=== PATIENT | female | born 1945 | race Caucasian/White ===

== ENCOUNTER → 2016-09-16 | Outpatient (CLI) | payer MEDICARE, BC ==
[~2016-09-16] MED LIST: AMOXICILLIN 8751 TAB; ASPI1POW PO; ASPIRIN 32325 MG/TAB PO; ASPIRIN 81M81 MG/TA2; BACTRIM DS 8001 TAB PO; CEPHALEXIN500 M1 PO; COZAAR 50MG50 MG/TAB PO; FISH OIL 1000MG1 CAP PO; FISH OIL1000 MG PO; FORT1000TA PO; IRON324 M1 PO; LIPITOR 10MG10 MG PO; LOPRESSOR 225 MG/TAB PO; MASON NATURAL500 MG PO; MVI; NATURE'S BLEND500 M1 PO; NITROQUICK0.4 MG SL; PLAVIX 75MG TAB75 MG PO; SYNTHROID0.125 MG/T PO; TRIAMCINOLONE A15 G1 TP
== END ==
LOC: MC.RAD 10:00
DX: Z12.31 Encounter for screening mammogram for malignant neoplasm of breast (principal)

== ENCOUNTER 2017-07-26 16:06 | Emergency (ER) | payer MEDICARE, BC ==
[~2017-07-26] VITALS: Ht 165.1 cm; Wt 64.5 kg
[2017-07-26 16:13] VITALS: TEMP 98
[2017-07-26 17:13] LABS: BASO # 0.1 (0.0-0.2); BASO % 0.6 % (0.0-2.0); EOS # 0.1 (0.0-0.7); EOS % 1.7 % (0-4.0); GRAN # 5.1 (1.4-6.5); GRAN % 63.2 % (42.2-75.2); HEMOGLOBIN 12.6 g/dl (12.5-16.0); LYMPH # 2.1 (1.2-3.4); LYMPH % 25.8 % (20.0-51.0); MEAN CELL VOLUME 90 fl (80.0-100.0); MEAN CORPUSCULAR HEMOGLOBIN 28 pg (27.0-31.0); MEAN CORPUSCULAR HGB CONC 32 g/dl (33.0-37.0); MEAN PLATELET VOLUME 10.6 fl (7.4-10.4); MONO # 0.7 (0.1-0.6); MONO % 8.5 % (1.7-9.3); PLATELET COUNT 269 K/mm3 (130-400); RED BLOOD COUNT 4.46 M/mm3 (4.10-5.30); REDCELL DISTRIBUTION WIDTH-CV 13.6 % (11.5-14.5)
[2017-07-26 17:18] LABS: PROTHROMBIN TIME 11.2 SECONDS (9.7-12.8)
[2017-07-26 17:20] LABS: PARTIAL THROMBOPLASTIN TIME 28.7 SECONDS (26.0-37.0)
[2017-07-26 17:24] LABS: ALANINE AMINOTRANSFERASE 42 U/L (9-52); ALBUMIN 4.2 gm/dL (3.5-5.0); ALKALINE PHOSPHATASE 83 U/L (50-136); ANION GAP 13 mmol/L (7-16); AST,SGOT 50 U/L (15-37); BILIRUBIN,TOTAL 0.3 mg/dL (0.0-1.0); BLOOD UREA NITROGEN 20 mg/dL (7-17); CALCIUM 9.2 mg/dL (8.4-10.2); CARBON DIOXIDE 26 mmol/L (22-30); CHLORIDE 105 mmol/L (98-107); CREATININE, serum 0.77 mg/dL (0.52-1.25); GLUCOSE 135 mg/dL (74-106); LIPASE 140 U/L (23-300); MAGNESIUM 1.7 mg/dL (1.6-2.3); SODIUM 144 mmol/L (137-145)
[2017-07-26 17:38] LABS: TROPONIN-I < 0.012 ng/mL (0.000-0.034)
[2017-07-26 19:12] LABS: COLLECTION METHOD CLEAN CATCH
[2017-07-26 19:20] LABS: MUCOUS Present /lpf; PH 5 (5-8); URINE APPEARANCE Hazy; URINE BACTERIA Rare /hpf; URINE BILIRUBIN Negative (NEGATIVE); URINE BLOOD 1+ (NEGATIVE); URINE COLOR Yellow; URINE GLUCOSE Negative (NEGATIVE); URINE KETONE Negative (NEGATIVE); URINE LEUKOCYTE ESTERASE 3+ (NEGATIVE); URINE NITRATE Negative (NEGATIVE); URINE PROTEIN(semi-quant) Negative (NEGATIVE); URINE UROBILINOGEN Negative (NEGATIVE)
[2017-07-26] MEDS ORDERED: MACROBID 1100 MG/CAP PO (20:00)
[2017-07-26] MEDS ORDERED: PROTONIX 40MG T40 MG PO (20:02)
[2017-07-26] MEDS ORDERED: CARAFATE 1GM1 G PO (20:02)
[2017-07-26 20:23] VITALS: BP 154/75
[2017-07-26] MEDS ORDERED: ASPIRIN 32325 MG/TAB PO (20:24)
[2017-07-26] MEDS ORDERED: GLUCOPHAGE1000 MG PO (20:24)
[2017-07-26 20:57] VITALS: PULSE 80
== END 2017-07-26 20:58 | disposition home or self-care (01) ==
LOC: COL.ER 16:06
PROVIDERS: Emergency Medicine
DX: N39.0 Urinary tract infection, site not specified (principal); R07.89 Other chest pain; E11.9 Type 2 diabetes mellitus without complications; I10 Essential (primary) hypertension; E78.5 Hyperlipidemia, unspecified; E03.9 Hypothyroidism, unspecified; Z95.5 Presence of coronary angioplasty implant and graft; Z79.84 Long term (current) use of oral hypoglycemic drugs; Z79.82 Long term (current) use of aspirin
CPT/HCPCS: C9113

== ENCOUNTER → 2017-10-10 | Outpatient (CLI) | payer MEDICARE, BC ==
[~2017-10-10] MED LIST changes: +CARAFATE 1GM1 G PO; +GLUCOPHAGE1000 MG PO; +MACROBID 1100 MG/CAP PO; +PROTONIX 40MG T40 MG PO
== END ==
LOC: MC.RAD 10:19
DX: Z12.31 Encounter for screening mammogram for malignant neoplasm of breast (principal)

== ENCOUNTER → 2017-11-21 | Outpatient (CLI) | payer MEDICARE, BC | LOC: SUN.DIA 14:11 | DX: E11.9 Type 2 diabetes mellitus without complications (principal); I11.9 Hypertensive heart disease without heart failure; E78.5 Hyperlipidemia, unspecified; E66.9 Obesity, unspecified; Z68.39 Body mass index [BMI] 39.0-39.9, adult; Z71.3 Dietary counseling and surveillance; Z87.891 Personal history of nicotine dependence | CPT/HCPCS: G0108 ==

== ENCOUNTER → 2017-12-21 | Outpatient (CLI) | payer MEDICARE, BC | LOC: SUN.DIA 11-01 15:40 | DX: E11.9 Type 2 diabetes mellitus without complications (principal); E78.5 Hyperlipidemia, unspecified; I10 Essential (primary) hypertension; E66.9 Obesity, unspecified; F17.210 Nicotine dependence, cigarettes, uncomplicated ==

== ENCOUNTER → 2018-06-29 | Outpatient (CLI) | payer MEDICARE, BC | LOC: COL.PUL 12:32 | DX: R06.02 Shortness of breath (principal); R07.89 Other chest pain; Z87.891 Personal history of nicotine dependence | CPT/HCPCS: J7674 ==

== ENCOUNTER → 2018-10-27 | Outpatient (CLI) | payer MEDICARE, BC | LOC: MC.RAD 10:43 | DX: Z12.31 Encounter for screening mammogram for malignant neoplasm of breast (principal) ==

== ENCOUNTER 2019-01-07 10:10 | Emergency (ER) | payer MEDICARE, BC ==
[~2019-01-07] VITALS: Ht 165.1 cm; Wt 104.1 kg
[2019-01-07 10:25] VITALS: TEMP 98.3
[2019-01-07] MEDS ORDERED: BREO IH (10:53)
[2019-01-07] MEDS ORDERED: MULTI VITAMINS1 TAB PO (10:54)
[2019-01-07] MEDS ORDERED: NASONEX SPRAY17 GM NS (10:55)
[2019-01-07] MEDS ORDERED: VITAMIN D 1001000 IU PO (10:55)
[2019-01-07] MEDS ORDERED: CRANBERRY500 M3 PO (10:56)
[2019-01-07] MEDS ORDERED: [UNRECOGNIZED DRUG - OTHER] OU (10:56)
[2019-01-07 11:11] LABS: BASO # 0.1 (0.0-0.2); BASO % 0.7 % (0.0-2.0); EOS # 0.1 (0.0-0.7); EOS % 1.4 % (0-4.0); GRAN # 4.6 (1.4-6.5); GRAN % 66.2 % (42.2-75.2); HEMATOCRIT 41.5 % (37.0-47.0); HEMOGLOBIN 13.4 g/dl (12.5-16.0); LYMPH # 1.6 (1.2-3.4); LYMPH % 22.8 % (20.0-51.0); MEAN CELL VOLUME 93 fl (80.0-100.0); MEAN CORPUSCULAR HEMOGLOBIN 30 pg (27.0-31.0); MEAN CORPUSCULAR HGB CONC 32 g/dl (33.0-37.0); MEAN PLATELET VOLUME 10.5 fl (7.4-10.4); MONO # 0.6 (0.1-0.6); MONO % 8.3 % (1.7-9.3); PLATELET COUNT 269 K/mm3 (130-400); RED BLOOD COUNT 4.46 M/mm3 (4.10-5.30)
[2019-01-07 11:23] LABS: ALBUMIN 4.3 gm/dL (3.5-5.0); BILIRUBIN,TOTAL 0.3 mg/dL (0.0-1.0); CALCIUM 9.3 mg/dL (8.4-10.2); CREATININE, serum 0.67 (0.52-1.25); POTASSIUM 4.1 mmol/L (3.4-5.0); TOTAL PROTEIN 7.1 gm/dL (6.4-8.2)
[2019-01-07 12:19] VITALS: BP 131/83; PULSE 70
== END 2019-01-07 12:20 | disposition home or self-care (01) ==
LOC: COL.ER 10:10
PROVIDERS: Family Medicine
DX: M79.662 Pain in left lower leg (principal); E11.9 Type 2 diabetes mellitus without complications; Z79.84 Long term (current) use of oral hypoglycemic drugs; Z79.51 Long term (current) use of inhaled steroids; Z79.82 Long term (current) use of aspirin

== ENCOUNTER → 2019-11-28 | Outpatient (CLI) | payer MEDICARE, BC ==
[~2019-11-28] MED LIST changes: +BREO IH; +CRANBERRY500 M3 PO; +MULTI VITAMINS1 TAB PO; +NASONEX SPRAY17 GM NS; +VITAMIN D 1001000 IU PO; +[UNRECOGNIZED DRUG - OTHER] OU
== END ==
LOC: MC.RAD 10:13
DX: Z12.31 Encounter for screening mammogram for malignant neoplasm of breast (principal)

== ENCOUNTER 2020-08-25 20:54 | Observation (INO) | payer MEDICARE, BC ==
[~2020-08-25] VITALS: Ht 165.1 cm; Wt 97.3 kg
[2020-08-25 21:21] LABS: BASO # 0.1 (0.0-0.2); BASO % 0.7 % (0.0-2.0); EOS # 0.1 (0.0-0.7); EOS % 1.5 % (0-4.0); GRAN # 4.8 (1.4-6.5); GRAN % 54.9 % (42.2-75.2); HEMATOCRIT 45.6 % (37.0-47.0); HEMOGLOBIN 14.8 g/dl (12.5-16.0); LYMPH % 34.6 % (20.0-51.0); MEAN CELL VOLUME 96 fl (80.0-100.0); MEAN CORPUSCULAR HEMOGLOBIN 31 pg (27.0-31.0); MEAN CORPUSCULAR HGB CONC 33 g/dl (33.0-37.0); MEAN PLATELET VOLUME 10.4 fl (7.4-10.4); MONO # 0.7 (0.1-0.6); MONO % 8.1 % (1.7-9.3); PLATELET COUNT 241 K/mm3 (130-400); RED BLOOD COUNT 4.76 M/mm3 (4.10-5.30); REDCELL DISTRIBUTION WIDTH-CV 12.2 % (11.5-14.5)
[2020-08-25 21:27] LABS: PROTHROMBIN TIME 10.8 SECONDS (9.7-12.8)
[2020-08-25 21:29] LABS: PARTIAL THROMBOPLASTIN TIME 29.7 SECONDS (26.0-37.0)
[2020-08-25 21:30] LABS: ALANINE AMINOTRANSFERASE 34 U/L (4-34); ALBUMIN 4.4 gm/dL (3.5-5.0); ALKALINE PHOSPHATASE 79 U/L (50-136); ANION GAP 7 mmol/L (7-16); AST,SGOT 49 U/L (15-37); BILIRUBIN,TOTAL 0.2 mg/dL (0.0-1.0); BLOOD UREA NITROGEN 21 mg/dL (7-17); CALCIUM 9.7 mg/dL (8.4-10.2); CARBON DIOXIDE 29 mmol/L (22-30); CHLORIDE 104 mmol/L (98-107); CREATININE, serum 0.72 (0.52-1.25); GLUCOSE 138 mg/dL (74-106); SODIUM 140 mmol/L (137-145); TOTAL PROTEIN 7.6 gm/dL (6.4-8.2)
[2020-08-25 21:43] LABS: TROPONIN-I < 0.012 ng/mL (0.000-0.035)
[2020-08-26] VITALS (7 sets, daily range): BP systolic 136–164; BP diastolic 62–69; PULSE 61–72; TEMP 97.4–98.5
--- NOTE | 2020-08-26 01:35 | NUR ---
0030 - PATIENT TO FLOOR FROM ED - STATES SHE IS FEELING "FINE: A THIS TIME - HOWEVER THE FACT THAT SHE KEEPS EXPERIENCING A "LISP" WITH HER SPEECH THAT HAS NEVER BEEN THERE BEFORE HAS HER CONCERNED. SHE STATED IT IS CURRNTLY (ACTIVELY) OCCURING, THIS RN CANNOT MAKE OUT ANY LISP IN SPEECH. PATIENT ADVISED THAT SHE IS NPO; ORIENTED TO ROOM AND CALL LIGHTS, ETC. ADVISED TO CALL FOR ASSISTANCE WHEN UP TO BR FOR FIRST TIME - PATIENT IS INDEPENDANT IN ALL ADL'S PRIOR TO ADMIT. PATIENT HAS NOT LISTED ANY VISITORS AND WILL INFO STAFF IF SHE WISHES TO. N/C OF PAIN, WEAKNESS. N/V OR DIZZINSS.
--- NOTE | 2020-08-26 05:11 | NUR ---
PATIENT SLEPT WELL AFTER SETTELING INTO ROOM. WOKE TO URINATE - PATIENT OBSERVED WITH AMBULATION AND IS STEADY, APPROPRIATE ON FEET. SHE IS AWARE OF HER LIMITATIONS AND WHEN SHE DOESN'T "FEEL RIGHT". SHE AGREES TO CALL IF HELP NEEDED AND REMAINS STANDBY ASSIST
[2020-08-26 07:12] LABS: BASO # 0.1 (0.0-0.2); BASO % 0.8 % (0.0-2.0); EOS # 0.1 (0.0-0.7); EOS % 1.4 % (0-4.0); GRAN # 3.7 (1.4-6.5); GRAN % 57.8 % (42.2-75.2); HEMATOCRIT 41.6 % (37.0-47.0); HEMOGLOBIN 13.5 g/dl (12.5-16.0); LYMPH % 31.9 % (20.0-51.0); MEAN CELL VOLUME 97 fl (80.0-100.0); MEAN CORPUSCULAR HEMOGLOBIN 32 pg (27.0-31.0); MEAN CORPUSCULAR HGB CONC 33 g/dl (33.0-37.0); MEAN PLATELET VOLUME 11.1 fl (7.4-10.4); MONO # 0.5 (0.1-0.6); MONO % 7.9 % (1.7-9.3); PLATELET COUNT 198 K/mm3 (130-400); RED BLOOD COUNT 4.27 M/mm3 (4.10-5.30); REDCELL DISTRIBUTION WIDTH-CV 12.4 % (11.5-14.5)
[2020-08-26 07:20] LABS: CALCIUM 8.9 mg/dL (8.4-10.2); CREATININE, serum 0.63 (0.52-1.25); POTASSIUM 4.3 mmol/L (3.4-5.0)
--- NOTE | 2020-08-26 10:47 | NUR ---
Sales And Training Specialist attended clinical rounds with the team. PT/OT/ST ordered. After rounds, SW met with the patient to complete intake. The patient lives alone in [place]. The patient denies DME use and is independent. The patient's PCP is Dr. Aspen Gallo and patient receives medications from [facility]. The patient reports her next appointment is scheduled for the end of November. The patient has advanced directives in the EMR and designate her children. The patient plans to return home at discharge. The patient will drive herself home. She drove herself to the hospital. *Discharge disposition* Home
--- NOTE | 2020-08-26 13:32 | NUR ---
Initial visit; Patient thanked High School Learning Support Teacher for looking in on her, visiting and wishing her well.
--- NOTE | 2020-08-26 18:02 | NUR ---
Patient resting in bed at this time. Patient is alert and oriented, answers questions appropriately. Patient has had no observed speech or other deficits today. Patient has had no complaints of pain, continues to deny needs, call light within reach.
[2020-08-27 00:08] VITALS: BP 147/67; PULSE 63; TEMP 98.2
[2020-08-27 03:52] VITALS: BP 158/62; PULSE 63; TEMP 97.7
--- NOTE | 2020-08-27 06:17 | NUR ---
PATIENT SLEPT WELL MOST OF SHIFT. VOICES SOME CONCERNS THAT HER B/P IS RUNNING A LITTLE HIGHER THAN NORMAL - STATES PHYSICIAN HAD WANTED TO INCREASE HER COZAR MEDICATION TO 50MG - IT IS NOTED THAT THIS THE DOSE DUE AT 9AM. NO OTHER CONCERNS AT THIS ITME - NO NEUROLOGICAL DEFECITS NOTED THIS SHIFT.
--- NOTE | 2020-08-27 07:00 | NUR ---
Report received from FORREST Leon. pT in bed resting, doing well, denies needs, will continue to monitor.
[2020-08-27 07:39] VITALS: BP 134/69; PULSE 65; TEMP 98
[2020-08-27 07:53] LABS: CHOLESTEROL RISK RATIO 2.4
[2020-08-27] MEDS ORDERED: PLAVIX 75MG TAB75 MG PO (09:12)
--- NOTE | 2020-08-27 09:37 | NUR ---
Polish Compounder attended clinical rounds with the team. PT/OT recommending home. The patient is to tentatively discharge home today, 08/27 with no services. The patient is independent in the room. There are no concerns returning home.
--- NOTE | 2020-08-27 09:46 | NUR ---
Assessmetn charted. Pt doing well, denies any s/sx of neurological defecits today. Anticiapting dishcarge, discussed EEG outpatient most likely. INT to RA/C. Denies pain. Will continue to monitor.
[2020-08-27 11:39] VITALS: BP 137/61; PULSE 64; TEMP 98.3
--- NOTE | 2020-08-27 12:00 | NUR ---
Discharge teaching completed at this time. INT dc'd, tip intact. Tele removed. Ok to drive self home per Dr. Ferguson, hospitalist. Discharge pakcet reviewed, pt does not want to wait for [facility] office to call back with appointmetn date and time. Reviewed new scripts, appointments, and asnwered all questions. Pt left with all belongings, escorted out with medical staff. Criteria met.
== END 2020-08-27 11:57 | disposition home or self-care (01) ==
LOC: COL.ER 20:54 → MEDICAL 23:08 → COL.ER 23:08 → MEDICAL 23:10
PROVIDERS: Emergency Medicine; Student in an Organized Health Care Education/Training Program; ADMIT Internal Medicine
DX: G45.9 Transient cerebral ischemic attack, unspecified (principal); I35.0 Nonrheumatic aortic (valve) stenosis; I10 Essential (primary) hypertension; E03.9 Hypothyroidism, unspecified; E78.5 Hyperlipidemia, unspecified; J45.909 Unspecified asthma, uncomplicated; E11.9 Type 2 diabetes mellitus without complications; Z79.84 Long term (current) use of oral hypoglycemic drugs; Z95.818 Presence of other cardiac implants and grafts; Z79.82 Long term (current) use of aspirin; Z79.899 Other long term (current) drug therapy; Z79.890 Hormone replacement therapy; Z87.891 Personal history of nicotine dependence
CPT/HCPCS: OP; 99223-AI; A9585; G0378; J1650; Q9967

== ENCOUNTER 2020-09-05 18:54 | Inpatient (IN) | payer MEDICARE, BC ==
[~2020-09-05] VITALS: Ht 162.6 cm; Wt 94.1 kg
[2020-09-05 20:07] LABS: BASO # 0.1 (0.0-0.2); BASO % 0.6 % (0.0-2.0); EOS # 0.1 (0.0-0.7); EOS % 0.9 % (0-4.0); GRAN # 5.1 (1.4-6.5); GRAN % 65.6 % (42.2-75.2); HEMATOCRIT 42.3 % (37.0-47.0); LYMPH # 1.9 (1.2-3.4); MEAN CELL VOLUME 94 fl (80.0-100.0); MEAN CORPUSCULAR HEMOGLOBIN 31 pg (27.0-31.0); MEAN CORPUSCULAR HGB CONC 33 g/dl (33.0-37.0); MEAN PLATELET VOLUME 10.4 fl (7.4-10.4); MONO # 0.6 (0.1-0.6); MONO % 7.6 % (1.7-9.3); PLATELET COUNT 255 K/mm3 (130-400)
[2020-09-05 20:19] LABS: ALANINE AMINOTRANSFERASE 31 U/L (4-34); ALKALINE PHOSPHATASE 89 U/L (50-136); ANION GAP 8 mmol/L (7-16); AST,SGOT 46 U/L (15-37); BILIRUBIN,TOTAL 0.4 mg/dL (0.0-1.0); BLOOD UREA NITROGEN 19 mg/dL (7-17); CALCIUM 9.1 mg/dL (8.4-10.2); CARBON DIOXIDE 27 mmol/L (22-30); CHLORIDE 104 mmol/L (98-107); CREATININE, serum 0.69 (0.52-1.25); GLUCOSE 117 mg/dL (74-106); POTASSIUM 3.8 mmol/L (3.4-5.0); SODIUM 138 mmol/L (137-145)
[2020-09-05 20:24] LABS: INR 1.1 (0.8-3.0); PROTHROMBIN TIME 12.1 SECONDS (9.7-12.8)
[2020-09-05 20:37] LABS: TROPONIN-I < 0.012 ng/mL (0.000-0.035)
[2020-09-05 21:20] LABS: COLLECTION METHOD CLEAN CATCH
[2020-09-05 21:50] VITALS: BP 153/68; PULSE 67; TEMP 98
[2020-09-05 21:51] LABS: PH 5 (5-8); URINE APPEARANCE Cloudy; URINE BACTERIA Rare /hpf; URINE BILIRUBIN Negative (NEGATIVE); URINE BLOOD 1+ (NEGATIVE); URINE COLOR Yellow; URINE GLUCOSE Negative (NEGATIVE); URINE KETONE Negative (NEGATIVE); URINE LEUKOCYTE ESTERASE 3+ (NEGATIVE); URINE NITRATE Positive (NEGATIVE); URINE PROTEIN(semi-quant) Negative (NEGATIVE); URINE UROBILINOGEN Negative (NEGATIVE); URINE WBC >50 /hpf
--- NOTE | 2020-09-06 04:23 | NUR ---
PATIENT ARRIVED TO ROOM 310 FROM THE ED ON A CART. PATIENT ABLE TO AMBULATE INDEPENDENTLY TO THE BED. PATIENT IS A&O X'S 4, DENIES PAIN OR NAUSEA, AND SPEECH IS CLEAR. PATIENT WAS ORIENTED TO HER ROOM AT THE TIME OF ADMISSION. BED IN LOWEST POSITION, CALL LIGHT WITHIN REACH, AND SEIZURE PRECAUTIONS IN PLACE. NO REQUESTS OR CONCERNS VERBALIZED BY PATIENT AT THIS TIME.
[2020-09-06 04:33] VITALS: BP 110/51; PULSE 62; TEMP 97.7
[2020-09-06 06:35] LABS: BASO % 0.7 % (0.0-2.0); EOS # 0.1 (0.0-0.7); EOS % 1.6 % (0-4.0); GRAN # 3.4 (1.4-6.5); GRAN % 60.6 % (42.2-75.2); HEMATOCRIT 40.4 % (37.0-47.0); HEMOGLOBIN 13.3 g/dl (12.5-16.0); LYMPH # 1.5 (1.2-3.4); LYMPH % 27.7 % (20.0-51.0); MEAN CELL VOLUME 95 fl (80.0-100.0); MEAN CORPUSCULAR HEMOGLOBIN 31 pg (27.0-31.0); MEAN CORPUSCULAR HGB CONC 33 g/dl (33.0-37.0); MEAN PLATELET VOLUME 10.8 fl (7.4-10.4); MONO # 0.5 (0.1-0.6); PLATELET COUNT 230 K/mm3 (130-400); RED BLOOD COUNT 4.27 M/mm3 (4.10-5.30); REDCELL DISTRIBUTION WIDTH-CV 12.1 % (11.5-14.5)
[2020-09-06 06:46] LABS: CALCIUM 8.7 mg/dL (8.4-10.2); CREATININE, serum 0.62 (0.52-1.25); POTASSIUM 3.8 mmol/L (3.4-5.0)
[2020-09-06 08:47] VITALS: BP 126/65; PULSE 66; TEMP 98.1
--- NOTE | 2020-09-06 09:03 | NUR ---
Pt awake and alert upon entry, Pt states she feels like she has an impending seizure oncoming, was able to take her medications without difficulty. Shift assessments complete. Left Pt call light in reach, bed in lowest position.
--- NOTE | 2020-09-06 11:16 | NUR ---
Plan is to return home independently. SW met with patient about DC plan. Patient reports that she has a friend that will transport her home. Patient reports that her DTR Jessie is her MPOA . Patient reports that her PCP is Dr. Jessica Thomas and specialist Dr. Chaves. Patient [facility] the [facility] [employer] and obtains RX without difficulty. Patient indicated that she will continue work with speech therapy. Patient indicated that she does not need any DME or use any. Patient indicated that she has not concerns at this time for her care. Will continue to follow for supports.
[2020-09-06 11:56] VITALS: BP 117/56; PULSE 61; TEMP 97.9
--- NOTE | 2020-09-06 12:40 | NUR ---
stopped by but nothing needed at this time.
[2020-09-06 16:53] VITALS: BP 133/68; PULSE 66; TEMP 97.6
[2020-09-06 20:00] VITALS: BP 127/62; PULSE 65; TEMP 97.5
[2020-09-07] VITALS (7 sets, daily range): BP systolic 113–141; BP diastolic 58–71; PULSE 60–72; TEMP 97.4–98.2
--- NOTE | 2020-09-07 05:07 | NUR ---
NO NEW CONCERNS NOTED OR REPORTED BY PATIENT THROUGHOUT THE NIGHT. PATIENT AMBULATED IN SCHMIDT SEVERAL TIMES THROUGHOUT THE SHIFT.
[2020-09-07 06:36] LABS: BASO % 0.5 % (0.0-2.0); EOS # 0.1 (0.0-0.7); EOS % 1.3 % (0-4.0); GRAN # 3.8 (1.4-6.5); GRAN % 61.5 % (42.2-75.2); HEMATOCRIT 42.8 % (37.0-47.0); LYMPH # 1.8 (1.2-3.4); LYMPH % 28.6 % (20.0-51.0); MEAN CELL VOLUME 94 fl (80.0-100.0); MEAN CORPUSCULAR HEMOGLOBIN 31 pg (27.0-31.0); MEAN CORPUSCULAR HGB CONC 33 g/dl (33.0-37.0); MEAN PLATELET VOLUME 10.8 fl (7.4-10.4); MONO # 0.5 (0.1-0.6); MONO % 7.9 % (1.7-9.3); PLATELET COUNT 233 K/mm3 (130-400); RED BLOOD COUNT 4.54 M/mm3 (4.10-5.30); REDCELL DISTRIBUTION WIDTH-CV 12.2 % (11.5-14.5)
[2020-09-07 06:49] LABS: CALCIUM 9.1 mg/dL (8.4-10.2); CREATININE, serum 0.62 (0.52-1.25)
[2020-09-07 07:06] LABS: POTASSIUM 3.7 mmol/L (3.4-5.0)
--- NOTE | 2020-09-07 09:14 | NUR ---
Pt awake and alert upon entry this morning, no C/O pain currently. Shift assessments complete, left Pt call light in reach, bed in lowest position.
--- NOTE | 2020-09-07 14:26 | NUR ---
Pt stated that when she closed her eyes she saw "flashes if light" accross her vision.
--- NOTE | 2020-09-07 18:24 | NUR ---
Pt resting in the room, VS have remained stable. No other signs of seizure noted since the earlier note documented.
--- NOTE | 2020-09-07 23:01 | NUR ---
Patient sitting up in bed and watching TV upon enter the room. Shift assessment completed. Patient A/O x4. Patient denies any pain or discomfort. Denies SOB/dyspnea, N/V, headache, or dizziness. Denies any seizure activities. All scheduled meds given per JUL. Swallowing pills without difficulty. Call light within reach. Patient denies any needs. Fall precaution and seizure precaution maintained.
--- NOTE | 2020-09-08 01:55 | NUR ---
Patient called nurse and reports having difficulty breathing, speaking, and swollowing at 00:45 am. Patient reports that she feels like her throat is closing and she can't breath. Patient was sitting up in bed, breathing was labored, and patient was very anxious. VS- SPO2 99% on RA, BP 138/68, HR 65, Temp 98.1 at 00:45 am. Called hospitalist COLTEN Lovett and reported symptoms. COLTEN Lovett came to the room and assessed patient. Oxymask provided for comfort. New order received to give Solu-Medrol, Benadryl, and Pepcid. Solu-Medrol, Benadry, and Pepcid IV given per order. Patient reports feeling much better around 01:30 am. Breathing is even and unlabored at this time. Patient currently on oxygen 3L via oxymask. Call light within reach. Will continue to monitor.
[2020-09-08 03:07] VITALS: BP 138/67; PULSE 64; TEMP 97.7
--- NOTE | 2020-09-08 05:59 | NUR ---
Patient fell asleep around 0200 am this morning, and slept until 0600 am. Patient states feeling better this morning. No acute distress noted at this time. Call light within reach. Will give report to day shift nurse.
--- NOTE | 2020-09-08 06:13 | NUR ---
Patient refused MRI this morning. Per patient, she really wants to transfer to [facility] today, and would like to get MRI at [facility].
--- NOTE | 2020-09-08 07:02 | NUR ---
Patient awake and talking on the telephone at this time. Patient denies any pain, discomfort, or further needs at this time. Will continue to monitor. Call light within reach. Seizure precautions in place.
[2020-09-08 08:37] VITALS: BP 146/67; PULSE 83; TEMP 97.9
--- NOTE | 2020-09-08 11:57 | NUR ---
Patient resting in bed at this time. Antibiotic and fluids started as ordered. Patient denies any pain, discomfort, or futher needs at this time. Patient is wanting to be transferred to . [facility]. Will continue to monitor. Call light within reach. Seizure precautions in place.
[2020-09-08 12:00] VITALS: BP 153/57; PULSE 70; TEMP 97.7
--- NOTE | 2020-09-08 13:47 | NUR ---
Cotton Picker attended clinical rounds with the team and patient is requesting transfer to [facility]. PT/OT worked with patient and are recommending home upon discharge.
[2020-09-08 15:45] VITALS: BP 143/59; PULSE 66; TEMP 98.4
--- NOTE | 2020-09-08 18:26 | NUR ---
Patient knitting in bed at this time. IV fluids running as ordered. Patient is scheduled for MRI in the am. Patient continues to have dysphagia, no other stroke symptoms noted. Seizure precautions in place, no seizure activity noted. Will continue to monitor. Call light within reach.
[2020-09-08 21:16] VITALS: BP 132/48; PULSE 65; TEMP 97.7
--- NOTE | 2020-09-08 22:41 | NUR ---
Patient sitting up in bed and talking on the phone upon enter the room. Patient finished eating dinner. Tolerated PO food. No c/o trouble swallowing. Denies SOB/dyspnea, pain or discomfort. VS stable. All scheduled meds given per JUL. Call light within reach. Patient denies any needs at this time.
[2020-09-09] VITALS (7 sets, daily range): BP systolic 119–153; BP diastolic 52–63; PULSE 57–65; TEMP 97.5–98.2
--- NOTE | 2020-09-09 06:04 | NUR ---
Patient rested well throughout the night. No seizure activity noted. No episode of throat tightening/ closing noted. Call light within reach. Will give report to day shift nurse.
[2020-09-09 08:03] LABS: BASO % 0.6 % (0.0-2.0); EOS # 0.1 (0.0-0.7); EOS % 0.8 % (0-4.0); GRAN # 4.4 (1.4-6.5); HEMATOCRIT 41.4 % (37.0-47.0); HEMOGLOBIN 13.3 g/dl (12.5-16.0); LYMPH # 2.1 (1.2-3.4); LYMPH % 29.1 % (20.0-51.0); MEAN CELL VOLUME 94 fl (80.0-100.0); MEAN CORPUSCULAR HEMOGLOBIN 30 pg (27.0-31.0); MEAN CORPUSCULAR HGB CONC 32 g/dl (33.0-37.0); MEAN PLATELET VOLUME 10.7 fl (7.4-10.4); MONO # 0.6 (0.1-0.6); MONO % 8.1 % (1.7-9.3); PLATELET COUNT 241 K/mm3 (130-400); RED BLOOD COUNT 4.39 M/mm3 (4.10-5.30); REDCELL DISTRIBUTION WIDTH-CV 12.3 % (11.5-14.5)
[2020-09-09 08:15] LABS: CALCIUM 8.8 mg/dL (8.4-10.2); CREATININE, serum 0.63 (0.52-1.25); POTASSIUM 3.8 mmol/L (3.4-5.0)
--- NOTE | 2020-09-09 11:55 | NUR ---
Assessment completed, alert/oriented, vital signs stable, denies any pain or discomfort at this time, denies having any "episodes over night", nursing staff denies any changes or neuro deficits throught the night as well, heart RRR, lungs CTA, she is having no issues with speaking/chewing or swallowing today, has made the diagnosis of Myasthenia Gravis after having getting some lab results back that had been drawn as an outpatient, hospitalist has discussed this with the patient as well as plan of care going forward, patient is relieved to have some "answers" as to what has been going on, she dneies other needs at this time, will continue to monitor
--- NOTE | 2020-09-09 12:41 | NUR ---
Incident Commander attended clinical rounds with the team. Patient has a new diagnosis of Myasthenia Gravis. SW will continue to follow.
[2020-09-10 03:37] VITALS: BP 139/56; PULSE 54; TEMP 97.8
--- NOTE | 2020-09-10 05:10 | NUR ---
PATIENT HAPPY TO HAVE DIAGNOSIS AND GO HOME TODAY. PATIENT RESTED QUIETLY IN BED WITH NO NEW ISSUES NOTED OR REPORTED BY PATIENT.
[2020-09-10 06:51] LABS: BASO % 0.6 % (0.0-2.0); EOS # 0.1 (0.0-0.7); EOS % 1.9 % (0-4.0); GRAN # 3.8 (1.4-6.5); GRAN % 61.4 % (42.2-75.2); HEMATOCRIT 37.5 % (37.0-47.0); HEMOGLOBIN 12.6 g/dl (12.5-16.0); LYMPH # 1.7 (1.2-3.4); LYMPH % 27.5 % (20.0-51.0); MEAN CELL VOLUME 96 fl (80.0-100.0); MEAN CORPUSCULAR HEMOGLOBIN 32 pg (27.0-31.0); MEAN CORPUSCULAR HGB CONC 34 g/dl (33.0-37.0); MEAN PLATELET VOLUME 10.5 fl (7.4-10.4); MONO # 0.5 (0.1-0.6); MONO % 8.3 % (1.7-9.3); PLATELET COUNT 222 K/mm3 (130-400); RED BLOOD COUNT 3.91 M/mm3 (4.10-5.30); REDCELL DISTRIBUTION WIDTH-CV 12.6 % (11.5-14.5)
[2020-09-10 07:07] LABS: CALCIUM 8.2 mg/dL (8.4-10.2); CREATININE, serum 0.61 (0.52-1.25); POTASSIUM 3.9 mmol/L (3.4-5.0)
[2020-09-10 07:27] VITALS: BP 141/51; PULSE 61; TEMP 97.6
[2020-09-10] MEDS ORDERED: MESTINON 6060 MG/TAB PO (08:32)
[2020-09-10] MEDS ORDERED: KEPPRA 500MG500 MG PO (08:33)
[2020-09-10] MEDS ORDERED: LIPITOR 80MG80 MG PO (08:33)
[2020-09-10] MEDS ORDERED: KEPPRA750 MG PO (08:34)
[2020-09-10] MEDS ORDERED: B-121000 MCG PO (08:35)
[2020-09-10] MEDS ORDERED: CEPHALEXIN500 M1 PO (08:56)
[2020-09-10] MEDS ORDERED: D3-5050000 IU PO (08:58)
--- NOTE | 2020-09-10 10:26 | NUR ---
PT PLEASANT, AOX4, EAGER FOR DISCHARGE, MEDICATIONS GIVEN, VITALS REVIEWED, ASSESSMENT PERFORMED, IV SITE CDI W/O ERYTHEMA CALL LIGHT WITHIN REACH, PT SLOWLY EATING BREAKFAST, NO OTHER NEEDS AT THIS TIME
[2020-09-10 11:33] VITALS: BP 101/49; PULSE 62; TEMP 98
--- NOTE | 2020-09-10 12:40 | NUR ---
IV DISCONTINUED, DISCHARGE EDUCATION PROVIDED, PT HAD NO QUESTIONS AT THIS TIME, PT ESCORTED OUT WITH BELONGINGS. NO OTHER NEEDS
--- NOTE | 2020-09-10 12:52 | NUR ---
Emergency Medicine Medical Director attended clinical rounds with the team. During rounds, SW discussed Home Health services, particularly for nursing as patient has medication changes. During rounds, Hospitalist also advised patient to have someone with her while she bathes due for seizure precautions. SW also advised that Home Health OT could assist with bathroom set up and recommendations. Initially, patient was agreeable so SW provided Medicare.gov list of HH agencies. Patient wanted to talk with her friends about what HH agencies they use. SW followed up with patient later in the morning and she told SW that she no longer wanted HH services and feels she does not need it. SW provided patient with her phone number and encouraged patient to call if she changes her mind. SHAQUILLE updated COLTEN Connors. Discharge Plan: Home
--- NOTE | 2020-09-11 12:49 | NUR ---
Return phone call to Ashley at this time. Discussed referal's at with patient. Informed that the apartment community manager sent them all of the requested information, and that once reviews this, they will call her with appointment times. Ashley states understanding.
== END 2020-09-10 12:40 | disposition home or self-care (01) | DRG 57 ==
LOC: COL.ER 18:54 → MEDICAL 20:45
PROVIDERS: Emergency Medicine; Hospitalist; Physician Assistant; ADMIT Family Medicine
DX: G70.00 Myasthenia gravis without (acute) exacerbation (principal); N39.0 Urinary tract infection, site not specified; I10 Essential (primary) hypertension; E78.5 Hyperlipidemia, unspecified; J45.909 Unspecified asthma, uncomplicated; E11.9 Type 2 diabetes mellitus without complications; R91.1 Solitary pulmonary nodule; E55.9 Vitamin D deficiency, unspecified; I35.0 Nonrheumatic aortic (valve) stenosis; E53.8 Deficiency of other specified B group vitamins; G40.909 Epilepsy, unspecified, not intractable, without status epilepticus
CPT/HCPCS: 99223-AI; 99233-AI; 99239; G0378; J0696; J1200; J1650; J1815; J1953; J2920; J3420; J7030; Q9967

== ENCOUNTER 2021-04-29 11:53 | Emergency (ER) | payer MEDICARE, BC ==
[~2021-04-29] VITALS: Ht 162.6 cm; Wt 90.5 kg
[~2021-04-29 11:53] MED LIST changes: +B-121000 MCG PO; +D3-5050000 IU PO; +KEPPRA 500MG500 MG PO; +KEPPRA750 MG PO; +LIPITOR 80MG80 MG PO; +MESTINON 6060 MG/TAB PO
[2021-04-29 12:03] VITALS: TEMP 98.5
[2021-04-29 12:50] LABS: BASO % 0.5 % (0.0-2.0); EOS % 0.1 % (0.0-4.0); GRAN # 6.8 K/mm3 (1.4-6.5); GRAN % 80.7 % (42.2-75.2); HEMATOCRIT 44.3 % (37.0-47.0); HEMOGLOBIN 14.9 g/dl (12.5-16.0); LYMPH # 1.2 K/mm3 (1.2-3.4); LYMPH % 14.7 % (20.0-51.0); MEAN CELL VOLUME 95 fl (80.0-100.0); MEAN CORPUSCULAR HEMOGLOBIN 32 pg (27-31); MEAN CORPUSCULAR HGB CONC 34 g/dl (33.0-37.0); MEAN PLATELET VOLUME 10.3 fl (7.4-10.4); MONO # 0.3 K/mm3 (0.1-0.6); MONO % 3.8 % (1.7-9.3); PLATELET COUNT 266 K/mm3 (130-400); RED BLOOD COUNT 4.69 M/mm3 (4.10-5.30); REDCELL DISTRIBUTION WIDTH-CV 12.8 % (11.5-14.5)
[2021-04-29 13:05] LABS: ALBUMIN 4.1 gm/dL (3.4-4.8); BILIRUBIN,TOTAL 0.7 mg/dL (0.2-1.2); CALCIUM 9.4 mg/dL (8.4-10.2); CREATININE, serum 0.89 mg/dL (0.57-1.11); POTASSIUM 4.5 mmol/L (3.5-4.5); TOTAL PROTEIN 6.7 gm/dL (6.2-8.1)
[2021-04-29 15:49] LABS: CLOSTRIDIUM DIFF A/B NEG; CLOSTRIDIUM DIFF A/B INTERP No C.diff present
[2021-04-29 17:18] VITALS: BP 133/68; PULSE 60
== END 2021-04-29 17:18 | disposition home or self-care (01) ==
LOC: COL.ER 11:53
PROVIDERS: Nurse Practitioner Family
DX: K92.1 Melena (principal); E11.9 Type 2 diabetes mellitus without complications; E03.9 Hypothyroidism, unspecified; E78.5 Hyperlipidemia, unspecified; I25.10 Atherosclerotic heart disease of native coronary artery without angina pectoris; G70.00 Myasthenia gravis without (acute) exacerbation; Z87.891 Personal history of nicotine dependence; Z79.890 Hormone replacement therapy; Z79.84 Long term (current) use of oral hypoglycemic drugs; Z79.82 Long term (current) use of aspirin; Z79.899 Other long term (current) drug therapy